=== PATIENT | female | born 1950 | race Caucasian/White ===

== ENCOUNTER → 2021-05-09 | Outpatient (CLI) | payer OTHER ==
[~2021-05-09] MED LIST: NORCO 5-325 TA1 EACH PO; TORADOL 10 MG T10 MG PO; ZOFRAN4 MG PO
== END ==
LOC: LAB 10:59
DX: D89.9 Disorder involving the immune mechanism, unspecified (principal); M25.50 Pain in unspecified joint; R76.8 Other specified abnormal immunological findings in serum
CPT/HCPCS: 36415; 83520; 84550; 85652; 86140; 86200